=== PATIENT | male | born 1975 | race Caucasian/White ===

== ENCOUNTER 2025-10-01 12:12 | Inpatient (IN) ==
[2025-10-01] MEDS ORDERED: ACETAMINOPHEN 325 MG TAB PO PRN (13:51)
[2025-10-01] MEDS ORDERED: ONDANSETRON INJ 2 MG/ML 2 ML VIAL IV PRN (13:51)
[2025-10-01] MEDS ORDERED: MAGNESIUM HYDROXIDE SUSP 30 ML UDC PO PRN (13:51)
[2025-10-01] MEDS ORDERED: POLYETHYLENE (MIRALAX) 17 GM PACK PO PRN (13:51)
--- NOTE | 2025-10-01 14:02 | History & Physical Report ---
Date of Service October 01, 2025 Assessment & Plan (1) Abscess of sigmoid colon due to diverticulitis: Plan: Patient is a 50-year-old male with PMHx significant for diverticulitis who is a direct admission from [facility] after CTAP revealed acute diverticulitis with intramural abscess formation vs contained perforation seen along the ventral wall of the sigmoid colon in the LLQ measuring 2.5 x 3.3 x 3 cm. [facility] does not have access to on-call general surgery, thus the reason for transfer to this facility for formal general surgery evaluation. Full CTAP impression from [facility] under the 'Diagnostic Findings' section. Patient is hemodynamically stable, afebrile. Not meeting sepsis criteria on admission. Appreciable left lower quadrant and suprapubic tenderness on exam. No evidence of free air seen on CTAP. No indication for emergent surgical exploration at this time per d/w with general surgery. Continue conservative management with IV ABX, IVF hydration, bowel rest and as needed analgesia. S/p IV vancomycin and Zosyn at [facility]. Will continue with IV Zosyn for now, check blood cultures. Follow repeat labs, WBC count previously 15k at [facility] but otherwise his additional labs were grossly unrevealing. Check baseline EKG. UA performed at [facility] without evidence of infection. DVT Prophylaxis: SCDs/TEDs only for now Code Status: FULL CODE PCP: Theo Serrano MD Disposition: Admitted to med/surg Patient seen in collaboration with Dr. Hardin. Please see addendum. I spent a total of 65 minutes coordinating, documenting, and providing care for this patient excluding time spent in the performance of separately billed services or time spent by another provider/QHP. This included personally reviewing all current laboratories and imaging studies, medical reconciliation, outpatient chart review and discussion with specialists. This chart was completed in part utilizing Speech Voice Recognition Software. Grammatical errors, random word insertions, pronoun errors, and incomplete sentences are an occasional consequence of this system due to software limitations, ambient noise, and hardware issues. Any formal questions or concerns about the content, text, or information contained within the body of this dictation should be directly addressed to the provider for clarification. Admission and Anticipated Discharge Date Admission Date: October 01, 2025 History of Present Illness Chief Complaint: Direct admission from [facility]: sigmoid diverticulitis with abscess Primary Care Provider: Theo Serrano MD Patient is a 50-year-old male with PMHx significant for diverticulitis who is a direct admission from [facility] after CTAP revealed evidence of sigmoid diverticulitis with findings concerning for abscess formation. [facility] does not have access to on-call general surgeons, thus the reason for transfer to this facility for formal general surgery evaluation. Patient admits to left lower quadrant abdominal pain x 1 week. Describes the pain as mostly crampy in nature. Does admit to some sharp, stabbing pains as well. Denies any nausea or vomiting. Has previously had 2 bouts of diverticulitis over the past 10 years, neither situation required hospitalization. Both cases resolved with conservative management consisting of bowel rest and antibiotic therapy. Tried some magnesium citrate to help alleviate his pain as he thought it possibly was related to constipation. Admits to having copious bowel movements yesterday with no significant improvement in his pain. Denies any blood in his stool. No reported urinary complaints. Denies any fevers. Allergies Allergy/AdvReac Type Severity Reaction Status Date / Time amoxicillin [From Augmentin] Allergy Irritable Unverified 11/07/24 02:02 clavulanic acid Allergy Irritable Unverified 11/07/24 02:02 [From Augmentin] Home Medications Medication Instructions Recorded Confirmed Type No Known Home Medications 08/11/19 10/01/25 History Past Med/Surg History Problem List (Updated 10/01/25 @ 14:35 by Zak Cummings PA-C) Abscess of sigmoid colon due to diverticulitis Atypical chest pain Palpitations Medical History No significant past medical history Surgical History No significant past surgical history Social History Smoking Status: Light tobacco smoker Tobacco Type: Cigarettes Do You Dip or Chew Tobacco: No; Hx Alcohol Use: No Hx Substance Use: No Preferred Language: Georgian [employer] Required: Yes and No Beliefs That Will Affect Care: None marital status: Current Living Situation: Spouse current occupational status: employed Other Information That Helps Us Care for You: No Feels Safe at Home: Yes Safety Concerns: Feels Safe At This Time Assistive Devices: Glasses Review of Systems Review of Systems: At least ten systems reviewed and negative, except as noted in the HPI. Physical Exam Physical Exam: General: WD/WN, NAD, laying down in bed, A&Ox3, conversing appropriately. Pleasant. at bedside. HEENT: Normocephalic, atraumatic. External ear and nose normal, oropharynx normal. Respiratory: Normal respiratory effort, CTAB. Cardiovascular: RRR, normal peripheral pulses, no BLE edema. Abdomen/GI: Active bowel sounds, mod TTP in LLQ and suprapubic region, nondistended, soft. No guarding. Extremities/Musculoskeletal: No cyanosis or clubbing, extremities motor strength intact, moves all extremities. Neurologic: No overt focal deficits, CN's II-XI not formally tested but appear grossly intact bilaterally. Results & Data Results & Data Vital Signs (Past 12 Hours) Vital Signs Temp Pulse Resp BP Pulse Ox O2 Del Method 10/01/25 13:47 36.7 C 58 L 16 151/78 H 99 Room Air Diagnostic Findings CTAP with contrast performed at [facility], 10/01/2025, impression: 1. Prominent inflammatory wall thickening and fat stranding of the descending and sigmoid colon compatible with colitis. Extensive diverticulosis is noted and there is pericolonic inflammatory fat stranding likely the basis of acute diverticulitis. There is a multiloculated peripherally enhancing low-density collection with punctate focus of gas along the ventral wall of the sigmoid colon in the left lower quadrant measuring 2.5 x 3.3 x 3 cm, most likely on the basis of an intramural abscess. A contained perforation can have a similar appearance. No gross free air otherwise identified. 2. No evidence of small bowel obstruction or acute appendicitis. Small amount of free fluid in the lower abdomen and upper pelvis. 3. Wall thickening of the superior wall of the urinary bladder, likely reactive to the adjacent inflammatory changes in the sigmoid colon. Correlate with urinalysis to exclude cystitis. Mild prostamegaly with mild mass effect on the base of bladder. 4. Mild diffuse hepatic steatosis. Subcentimeter right lobe hepatic lesion measuring 5 mm is too small to characterize. Code Status & VTE Plan VTE Prophylaxis Plan VTE Prophylaxis will be ordered: Yes Supervising Physician Co-Signing Physician Notes Patient is a 50-year-old male with history of diverticulitis, tobacco use and no other significant past medical history presents with history of worsening lower quadrant abdominal pain for 1 week duration. Patient initially was evaluated at [facility] ED where he obtained CT abdomen showed evidence of diverticulitis with contained perforation Vs intra-abdominal abscess of sigmoid colon. Patient was transferred to [facility] for further evaluation. Patient admits to have 2 other episodes of diverticulitis in the past which resolved with conservative management. He states left lower quadrant abdominal pain is intermittent, sharp to stabbing and crampy in nature with radiation to groin, denies any aggravating, relieving factors. He admits to using mag citrate to help with bowel movement which did not really change his symptoms. Please review HPI for complete details of presentation. Blood work currently pending. His white blood cell count is elevated at 15k while at [facility]. On exam patient is well-built and nourished, no apparent distress, normocephalic atraumatic, EOMI, normal breath sounds, clear to auscultation, S1-S2, no murmur, no pedal edema, abdomen soft, left lower quadrant tender, no guarding or rigidity, normal bowel sounds, alert, awake, oriented, grossly no focal deficits. Patient is admitted for management of sigmoid diverticular abscess. Agree with IV Zosyn, fluids, n.p.o. Pain control as needed. Surgery consulted. I personally interviewed and examined the patient at bedside. I have reviewed the advanced practitioner's documentation on the date of service referred in note and agree with plan. Patient's care is coordinated with Isabelle Fuentes PA-C. Please refer to the documentation above for details of patient's presentation and for discussion of other issues. I spent a total [id number] coordinating, documenting, and providing care for this patient excluding time spent in the performance of separately billed services or time spent by another provider/QHP.
--- NOTE | 2025-10-01 14:24 | Surgery Consultation ---
Date of Consultation October 01, 2025 Assessment & Plan (1) Abscess of sigmoid colon due to diverticulitis: Plan Patient currently is not in extremis, is hemodynamically stable, afebrile, with some left lower quadrant and suprapubic tenderness, but no overt peritoneal signs, and there is no evidence of free air on CAT scan, so no indication for emergent surgical exploration at this time. Our hope is that we can avoid surgery and treat conservatively with IV antibiotics while we trend his white blood cell count, temps, and serial abdominal exams. If white blood cell count is climbing, has persistent fevers, or has worsening pain he may need to proceed to the OR on this admission. For now, would recommend keeping n.p.o. for bowel rest and will consider advancing his diet tomorrow if his white blood cell count is trending down and his abdominal pain is improving. Continue IV antibiotics, as needed IV pain medication, okay from surgical standpoint for pharmacologic DVT prophylaxis with heparin or Lovenox. Appreciate the hospitalist team management and general surgery will continue to follow for now. Supervising Physician Co-Signing Physician Notes This case has been discussed with the surgical PA History of Present Illness Reason for Consultation: diverticulitis with contained perforation Attending Physician: Aida Yeager, History of Present Illness Patient is a 50-year-old otherwise healthy white male, who has a past medical history of recurrent diverticulitis, who presents to [facility] as a direct admission from [facility] emergency department due to complaints of abdominal pain x [address] evidence of diverticulitis with contained perforation. Patient states that he initially developed abdominal pain approximately 1 week ago, localized to the left lower quadrant, intermittent, described as sharp and stabbing, but also crampy, with radiation down into his groin but no obvious aggravating or relieving factors. Patient states that he believes he has had diverticulitis on 2 other occasions over the last 5 years or so, 1 treated with IV antibiotics, and the other was self treated with leftover antibiotics from his approximately 1 year ago. Patient states on both occasions the antibiotics seemed helpful and his abdominal pain resolved. At the onset of this episode of his pain 1 week ago he initially felt that it may be related to reflux and constipation. He tried taking Aleve for the pain which did seem helpful, but then took Pepto-Bismol for the reflux and mag citrate for his constipation. He states that the reflux seemed improved with Pepto and he had multiple loose nonbloody bowel movements after the mag citrate, however his abdominal pain still persisted and increased in severity so he came to the emergency department for evaluation. He denies any chest pain, shortness of breath, dyspnea, nausea, vomiting, fevers or chills. Upon his initial evaluation he was hemodynamically stable and afebrile. His exam was significant for moderate left lower quadrant abdominal tenderness without overt peritoneal signs. His labs were significant for an elevated white blood cell count of 15.3. He had a CAT scan of the abdomen pelvis that showed findings concerning for an intraluminal abscess of the sigmoid colon versus contained perforation, likely related to a perforated diverticulitis. He was then transferred to [facility] for admission to the medical service and general surgery was consulted. Of note, the patient does admit to having a colonoscopy approximately 3 years ago when he was 47, states that it was ordered as part of his workup for diverticulitis in the past, and was told the colonoscopy was unremarkable. Allergies Allergy/AdvReac Type Severity Reaction Status Date / Time amoxicillin [From Augmentin] Allergy Irritable Unverified 11/07/24 02:02 clavulanic acid Allergy Irritable Unverified 11/07/24 02:02 [From Augmentin] Home Medications Medication Instructions Recorded Confirmed Type No Known Home Medications 08/11/19 10/01/25 History Patient History Medical History No significant past medical history Surgical History No significant past surgical history Social History Smoking Status: Light tobacco smoker Tobacco Type: Cigarettes Do You Dip or Chew Tobacco: No; Hx Alcohol Use: No Hx Substance Use: No Preferred Language: French Mail Teller Required: Yes and No Beliefs That Will Affect Care: None marital status: Current Living Situation: Spouse current occupational status: employed Other Information That Helps Us Care for You: No Feels Safe at Home: Yes Safety Concerns: Feels Safe At This Time Assistive Devices: Glasses Review of Systems Review of Systems: All systems reviewed & are unremarkable except as noted in HPI & below Physical Exam Physical Exam: Gen: Awake and alert, resting comfortably in bed in NAD CV: RRR PULM: non-labored breathing Abd: Abd soft, non-tender, non-distended, exquisitely tender to palpation to the left lower quadrant and suprapubic areas, but no guarding and no rigidity, no peritoneal signs ext: no edema to bilateral lower ext, SCDs in place, non-tender, feet warm and well perfused Results & Data Vital Signs (Past 12 Hours) Vital Signs Temp Pulse Resp BP Pulse Ox O2 Del Method 10/01/25 13:47 36.7 C 58 L 16 151/78 H 99 Room Air Diagnostic Findings CT abdomen pelvis at [facility]: Based on report: 1. Prominent inflammatory wall thickening and fat stranding of the descending and sigmoid colon compatible with colitis. Extensive diverticulosis is noted and there is pericolonic inflammatory fat stranding likely the basis of acute diverticulitis. There is a multiloculated peripherally enhancing low-density collection with punctate focus of gas along the ventral wall of the sigmoid colon in the left lower quadrant, most likely on the basis of an intramural abscess. A contained perforation can have similar appearance. No gross free air otherwise identified. Surgical consultation is recommended. 2. No evidence of small bowel obstruction or acute appendicitis. Small amount of free fluid in the lower abdomen and upper pelvis. 3. Wall thickening of the superior wall of the urinary bladder, and likely reactive to the adjacent inflammatory changes of the sigmoid colon. Correlate with urinalysis to exclude cystitis. Mild prostamegaly with mild mass effect at the base of the bladder. PG Care Time/CCT Total # of Minutes Spent Total Time Spent with Patient: Total time spent is greater than 50% in coordination of care (as documented) at patient's floor/unit and/or counseling patient: [place] [address] IN/OBS CONSULT LVL 5,80M Patient Type New Medical Decision Making Moderate Complexity Diagnoses Abscess of sigmoid colon due to diverticulitis K57.20
[2025-10-01] MEDS ORDERED: MoRPHine SULFATE 2 MG/ML CARP IV PRN (14:30)
[2025-10-01] MEDS: SODIUM CHLORIDE 0.9% 1,000 ML IV SCH (14:35)
[2025-10-01] MEDS: PIPERACILLIN/TAZOBACTAM 4.5 GM/100 ML BAG IV ONE (14:49)
[2025-10-01 15:38] LABS: Hematocrit (blood only) 42.4 % (42.0-52.0); Hemoglobin 14.3 g/dL (14.0-18.0); Immature Granulocytes # (auto) 0.09 K/uL (0.01-0.20); Immature Granulocytes % (auto) 0.5 %; Mean Corpuscular Hemoglobin 30.4 pg (25.0-34.0); Mean Corpuscular Volume 90.2 fL (80.0-100.0); Platelet Count 280 K/uL (130-400); RDW Standard Deviation 40.6 fL (36.4-46.3); Red Blood Count 4.70 M/uL (4.70-6.10); White Blood Count 17.05 K/ul (4.8-10.8)
[2025-10-01 15:56] LABS: Alanine Aminotransferase 19.0 U/L (7-52); Albumin Globulin Ratio 1.2 (0.9-2); Albumin Level 3.6 gm/dl (3.4-5.0); Alkaline Phosphatase 67.0 U/L (34-104); Anion Gap 6.0 (3-11); Bilirubin,Total 1.3 mg/dl (0.2-1.0); Blood Urea Nitrogen 11.0 mg/dl (6-23); Calcium 8.2 mg/dl (8.6-10.3); Carbon Dioxide 25.0 mmol/L (21-32); Chloride 106.0 mmol/L (98-107); Creatinine Clr Calc Pharmacy 94.4 ml/min; Globulin 2.9 gm/dl (2.5-4.0); Glucose 92.0 mg/dl (70-99(Fasting)); Magnesium 2.1 mg/dl (1.7-2.4); Potassium 4.3 mmol/L (3.5-5.1); Sodium 137.0 mmol/L (136-145); Total Protein 6.5 gm/dl (6.0-8.3)
[2025-10-01] MEDS: KETOROLAC TROMETHAMINE 15 MG/ML VIAL IV PRN (21:00)
[2025-10-01] MEDS: PIPERACILLIN/TAZOBACTAM 4.5 GM/100 ML BAG IV SCH (21:18)
[2025-10-01] MEDS: LORazepam Inj 0.25 MG in SYRINGE 0.125 ML IV PRN (21:45)
[2025-10-02] MEDS: MELATONIN 3 MG TAB PO PRN (00:42)
[2025-10-02 06:27] LABS: Hematocrit (blood only) 36.8 % (42.0-52.0); Hemoglobin 12.9 g/dL (14.0-18.0); Immature Granulocytes # (auto) 0.06 K/uL (0.01-0.20); Immature Granulocytes % (auto) 0.4 %; Mean Corpuscular Hemoglobin 31.3 pg (25.0-34.0); Mean Corpuscular Volume 89.3 fL (80.0-100.0); Platelet Count 262 K/uL (130-400); RDW Standard Deviation 39.1 fL (36.4-46.3); Red Blood Count 4.12 M/uL (4.70-6.10); White Blood Count 13.84 K/ul (4.8-10.8)
[2025-10-02 06:52] LABS: Alanine Aminotransferase 14.0 U/L (7-52); Albumin Globulin Ratio 1.5 (0.9-2); Albumin Level 3.4 gm/dl (3.4-5.0); Alkaline Phosphatase 55.0 U/L (34-104); Anion Gap 8.0 (3-11); Bilirubin,Total 1.4 mg/dl (0.2-1.0); Blood Urea Nitrogen 11.0 mg/dl (6-23); Calcium 8.2 mg/dl (8.6-10.3); Carbon Dioxide 23.0 mmol/L (21-32); Chloride 106.0 mmol/L (98-107); Creatinine Clr Calc Pharmacy 96.3 ml/min; Globulin 2.3 gm/dl (2.5-4.0); Glucose 90.0 mg/dl (70-99(Fasting)); Magnesium 1.9 mg/dl (1.7-2.4); Potassium 3.9 mmol/L (3.5-5.1); Sodium 137.0 mmol/L (136-145); Total Protein 5.7 gm/dl (6.0-8.3)
--- NOTE | 2025-10-02 08:20 | Electrocardiogram Report ---
Test Reason : Blood Pressure : */* mmHG Vent. Rate : 59 BPM Atrial Rate : 59 BPM P-R Int : 164 ms QRS Dur : 74 ms QT Int : 402 ms P-R-T Axes : 28 34 7 degrees QTcB Int : 397 ms Sinus bradycardia Abnormal ECG When compared with ECG of 11-Aug-2019 14:05, T wave inversion now evident in Inferior leads Confirmed by Chi Melgar ([id number]) on 10/02/2025 8:20:32 AM Referred By: REFERRED SELF Confirmed By: Chi Melgar
--- NOTE | 2025-10-02 11:50 | Hospitalist Progress Note ---
Date of Service October 02, 2025 Assessment & Plan (1) Abscess of sigmoid colon due to diverticulitis: (2) Anxiety about health: (3) Insomnia: Plan Patient with sigmoid colon abscess due to ruptured diverticulitis. Has responded appropriately to antibiotics Continue antibiotics Clear liquid diet and advance as tolerated in coordination with surgery As needed Ativan for anxiety Trazodone for sleep at bedside updated Admission and Anticipated Discharge Date Admission Date: October 01, 2025 Subjective Patient states his abdominal plain is almost completely resolved. Anxious about his hospitalization. States he has not sleep in 3 days and extremely fatigued and irritable Physical Exam Physical Exam: Constitutional: Alert, nontoxic HEENT: Mucous membranes moist. Lungs: Clear to auscultation, decreased, no wheezes rales or rhonchi CV: S1-S2, regular Abdomen: Soft, nondistended, mild tenderness left lower quadrant/suprapubic area with minimal guarding, no rigidity, no rebound Extremities: No significant edema Neuro: No focal deficits Psych: Cooperative, normal mood Results & Data Results & Data Vital Signs (Past 12 Hours) Vital Signs Temp Pulse Resp BP Pulse Ox O2 Del Method 10/02/25 07:06 36.9 C 60 16 108/55 L 97 Room Air Diagnostic Findings Reviewed imaging, laboratory and diagnostic studies. Pertinent findings as below. WBCs 13.8, improved Hemoglobin 12.9 Electrolytes stable Creatinine 0.98
[2025-10-02] MEDS: LORazepam 1 MG TAB PO PRN (12:44)
--- NOTE | 2025-10-02 12:48 | Surgery Progress Note ---
Date of Service October 02, 2025 Assessment & Plan (1) Abscess of sigmoid colon due to diverticulitis: Plan Patient appears to be recovering well from conservative treatment of his diverticulitis with perforation and contained abscess. White blood cell count is trending down, afebrile, and his abdominal pain is improving. We would like to advance him to clear liquid diet and continue to trend his white blood cell count, temps, and serial abdominal exams. Patient again expressed his frustration at the lack of updates from the medical team, so we have explained in great detail the typical presentation of diverticulosis, diverticulitis, and its management both medically and surgically. Patient states that he is very upset and was initially requesting to be discharged home, however this would be AGAINST MEDICAL ADVICE. At the end of our conversation, he is agreeable to staying and getting IV antibiotics with the likely transition to oral antibiotics upon discharge. We may consider a repeat CAT scan of the abdomen pelvis prior to discharge patient to reassess this contained perforation. He will also need an outpatient colonoscopy in approximately 6 weeks after this bout of diverticulitis resolves. Remainder of his care per the primary medicine team, general surgery will continue to follow for now. Admission and Anticipated Discharge Date Admission Date: October 01, 2025 Supervising Physician Co-Signing Physician Notes I have seen and examined this patient this am. He has been frustrated as he apparently was expecting to come in for a dose of IV abx and be sent home as he states he has done in the past. I have had a lengthy discussion with him regarding diverticulitis causes, symptoms, severity types that can cause of variety of presentations and CT imaging findings. I also explained the forms of treatment and potential treatment courses which vary depending on the severity. I have explained to him that he has had what we call a complicated episode of diverticulitis due to abscess formation. I explained what an abscess is and why they form. I have also explained the methods of treating an abscess, the dangers of leaving an abscess untreated or only partially treated and the implications of diverticulitis that does not get fully treated to resolution. He is also very frustrated that he has not had anything to eat and minimal to drink dating back to days ago at home as he has been dealing with this at home for roughly 6 days prior to seeking medical treatment. In an effort to appease the patient further, I did allow him clear liquids today. In addition, he states his abdominal pain is resolved. The patient also felt frustrated with the lack of sleep he has suffered th roughout this illness. He states he requested a sleep aid and was unable to get one. We will have this addressed in his orders for tonight so that the patient is able to get some sleep. After my long discussion with the patient and his family member at bedside, the patient felt some satisfaction, feeling more confident in his stay and the current treatment plan. His diet may be advanced to full liquids for dinner if he tolerates the clears Ambulate and he may have chemical DVT ppx if he accepts Surgery will continue to follow Subjective Patient currently states that he feels well, states that his abdominal pain has resolved. He has remained n.p.o., denies any nausea or vomiting, denies any flatus or bowel movement yet. White blood cell count is trending down, was 17 on admission, down to 13.8 today, afebrile, on Zosyn day 2. Patient expresses frustration, states that he has not been updated about his clinical course and expected hospital course. We had a detailed discussion with his present regarding the typical presentation of diverticulitis and its management, all questions were answered. Physical Exam Physical Exam: Gen: Awake and alert, resting comfortably in bed in NAD CV: RRR PULM: non-labored breathing Abd: Abd soft, non-tender, non-distended, mildly tender to palpation to the left lower quadrant and suprapubic areas, but no guarding and no rigidity, no peritoneal signs ext: no edema to bilateral lower ext, SCDs in place, non-tender, feet warm and well perfused Results & Data Vital Signs (Past 12 Hours) Vital Signs Temp Pulse Resp BP Pulse Ox O2 Del Method 10/02/25 07:06 36.9 C 60 16 108/55 L 97 Room Air PG Care Time/CCT Total # of Minutes Spent Total Time Spent with Patient: Total time spent is greater than 50% in coordination of care (as documented) at patient's floor/unit and/or counseling patient: 50 minutes C[place] [address] SUB INP/OBS CARE 3/50MIN Patient Type Established Diagnoses Abscess of sigmoid colon due to diverticulitis K57.20
[2025-10-03 06:03] LABS: Hematocrit (blood only) 36.2 % (42.0-52.0); Hemoglobin 12.3 g/dL (14.0-18.0); Immature Granulocytes # (auto) 0.05 K/uL (0.01-0.20); Immature Granulocytes % (auto) 0.4 %; Mean Corpuscular Hemoglobin 30.1 pg (25.0-34.0); Mean Corpuscular Volume 88.7 fL (80.0-100.0); Platelet Count 258 K/uL (130-400); RDW Standard Deviation 38.1 fL (36.4-46.3); Red Blood Count 4.08 M/uL (4.70-6.10); White Blood Count 12.32 K/ul (4.8-10.8)
[2025-10-03 06:23] LABS: Anion Gap 7.0 (3-11); Blood Urea Nitrogen 9.0 mg/dl (6-23); Calcium 8.5 mg/dl (8.6-10.3); Carbon Dioxide 25.0 mmol/L (21-32); Chloride 106.0 mmol/L (98-107); Creatinine Clr Calc Pharmacy 84.3 ml/min; Glucose 98.0 mg/dl (70-99(Fasting)); Potassium 4.1 mmol/L (3.5-5.1); Sodium 138.0 mmol/L (136-145)
--- NOTE | 2025-10-03 10:52 | Surgery Progress Note ---
<Statement entered by Aida Yeager DO - 10/03/25 18:16> I have seen and examined this patient this am with the surgical PA. I agree with this plan Date of Service October 03, 2025 Assessment & Plan (1) Abscess of sigmoid colon due to diverticulitis: Plan Patient is overall recovering well from his perforated diverticulitis with intramural abscess, abdominal pain is improved, WBC still elevated but trending down, afebrile. We feel that his diet could be advanced to low fiber today and continue with IV antibiotics for now. We had a detailed discussion with the patient regarding our preference to complete 72 hours of IV antibiotics and repeat his CT scan of the abdomen/pelvis tomorrow, and he is agreeable. If there is improvement of the diverticular disease on the CT tomorrow, will plan on transitioning to oral antibiotics and possibly discharge home. remainder of his care per the primary medicine team, general surgery will continue to follow for now. Admission and Anticipated Discharge Date Admission Date: October 01, 2025 Subjective patient continues to complain of mild left lower quadrant abdominal cramping, worse with movement and when he has to strain to void, but no worsening abdominal pain when eating a full liquid diet this morning. Overall much improved compared to on presentation. He has remained afebrile, WBC still elevated but trending down. Passing flatus but denies bowel movement. denies any nausea or vomiting Physical Exam Physical Exam: Gen: Awake and alert, resting comfortably in bed in NAD CV: RRR PULM: non-labored breathing Abd: Abd soft, non-tender, non-distended, mildly tender to palpation to the left lower quadrant and suprapubic areas, but no guarding and no rigidity, no peritoneal signs ext: no edema to bilateral lower ext, SCDs in place, non-tender, feet warm and well perfused Results & Data Vital Signs (Past 12 Hours) Vital Signs Temp Pulse Resp BP Pulse Ox O2 Del Method 10/03/25 07:19 36.4 C L 56 L 16 128/67 95 Room Air 10/02/25 23:08 36.7 C 62 18 121/67 95 Room Air PG Care Time/CCT Total # of Minutes Spent Total Time Spent with Patient: Total time spent is greater than 50% in coordination of care (as documented) at patient's floor/unit and/or counseling patient: C[place] [address] SUB INP/OBS CARE 11/28MIN Patient Type Established History Problem Focused Exam Problem Focused Medical Decision Making Straight Forward Diagnoses Abscess of sigmoid colon due to diverticulitis K57.20
--- NOTE | 2025-10-03 13:16 | Hospitalist Progress Note ---
Date of Service October 03, 2025 Assessment & Plan (1) Abscess of sigmoid colon due to diverticulitis: (2) Anxiety about health: (3) Insomnia: Plan Continue IV antibiotics Reviewed surgical recommendations to repeat CT tomorrow Diet advanced at bedside updated Admission and Anticipated Discharge Date Admission Date: October 01, 2025 Subjective Patient is feeling significantly improved. Tolerated his full liquid breakfast. Still little bit of cramping and lower abdominal pain with getting up and activity. Tolerated low fiber lunch. He states that he really appreciated the medications for sleep and had a great night sleep Physical Exam Physical Exam: Constitutional: Alert, nontoxic HEENT: Mucous membranes moist. Lungs: Clear to auscultation, decreased, no wheezes rales or rhonchi CV: S1-S2, regular Abdomen: Soft, nontender, nondistended, mild tenderness, mild guarding suprapubic area, low left lower quadrant Extremities: No significant edema Neuro: No focal deficits Psych: Cooperative, normal mood Results & Data Results & Data Vital Signs (Past 12 Hours) Vital Signs Temp Pulse Resp BP Pulse Ox O2 Del Method 10/03/25 07:19 36.4 C L 56 L 16 128/67 95 Room Air Diagnostic Findings Reviewed imaging, laboratory and diagnostic studies. Pertinent findings as below. WBCs 12.3, slightly improved Hemoglobin 12.3 Electrolytes stable Creatinine 1.12
[2025-10-03] MEDS ORDERED: Nursing to Pharmacy Communication SCH (23:00)
[2025-10-03 23:04] VITALS: TEMP 97.9; O2SAT 97
[2025-10-04 06:28] LABS: Hematocrit (blood only) 36.5 % (42.0-52.0); Hemoglobin 12.9 g/dL (14.0-18.0); Immature Granulocytes # (auto) 0.05 K/uL (0.01-0.20); Immature Granulocytes % (auto) 0.5 %; Mean Corpuscular Hemoglobin 31.2 pg (25.0-34.0); Mean Corpuscular Volume 88.2 fL (80.0-100.0); Platelet Count 298 K/uL (130-400); RDW Standard Deviation 37.2 fL (36.4-46.3); Red Blood Count 4.14 M/uL (4.70-6.10); White Blood Count 10.45 K/ul (4.8-10.8)
[2025-10-04 07:27] VITALS: BP 126/72; PULSE 54; RESP 16
[2025-10-04] MEDS: OPTIRAY 320 100ml IV ONE (10:26)
--- NOTE | 2025-10-04 13:03 | Surgery Progress Note ---
<Statement entered by Aida Yeager DO - 10/04/25 16:38> I have seen this patient this am. I agree with this plan. Date of Service October 04, 2025 Assessment & Plan (1) Abscess of sigmoid colon due to diverticulitis: Plan: Pt w/ diverticulitis and intramural abscess WBC 10.4. Afebrile with stable vitals Pain and symptoms much improved tolerating diet, + bowel function Repeat CT scan pending to ensure abscess stable to decreased If + results on CT scan we are okay with discharge to home and complete a course of oral abx Admission and Anticipated Discharge Date Admission Date: October 01, 2025 Subjective Patient feels well. Tolerating low fiber diet. + BM. Pain much improved Physical Exam Physical Exam: awake/alert Respiratory: normal respiratory effort Gastrointestinal (Abdomen): Percussion/Palpation: + abdomen tender (improved) and abdomen soft Results & Data Vital Signs (Past 12 Hours) Vital Signs Temp Pulse Resp BP Pulse Ox O2 Del Method 10/04/25 07:27 97.9 F 54 L 16 126/72 97 Room Air PG Care Time/CCT Total # of Minutes Spent Total Time Spent with Patient: Total time spent is greater than 50% in coordination of care (as documented) at patient's floor/unit and/or counseling patient: Coding Level of Care Code 13729 SUB INP/OBS CARE 11/28MIN Diagnoses Abscess of sigmoid colon due to diverticulitis K57.20
--- NOTE | 2025-10-04 14:19 | CT Scan Report ---
ABDOMEN AND PELVIS CT WITH IV CONTRAST CT DOSE: 997.07 mGy.cm HISTORY: Acute lower abdominal pain abd pain TECHNIQUE: Multiaxial CT images of the abdomen and pelvis were performed following the IV administrat ion of 93 cc of Optiray, A dose lowering technique was utilized adhering to the principles of ALARA. COMPARISON STUDY: CT abdomen and pelvis from outside hospital 10/01/2025 FINDINGS: Motion degraded exam. Mild linear bibasilar subsegmental atelectasis. Unremarkable spleen, pancreas, gallbladder and adrenal glands. 6 mm hypodense focus of the left hepatic lobe on image 77 s eries 3, likely a small cyst. There is mild fatty infiltration of the left hepatic lobe adjacent to t he falciform ligament. Patent portal vein. Mild nonspecific bilateral perinephric stranding. No hydronephrosis. Urinary bladder wall thickening and perivesicular stranding with partial distention. Mild atherosclerosis of the aorta without aneury sm. No lymphadenopathy. No bowel obstruction. Colonic diverticulosis. There is moderate wall thickeni ng of the proximal to mid sigmoid with mucosal hyperemia, not significant change from the prior study . There is asymmetric pericolonic stranding with inflammatory changes along the anterior wall of the sigmoid on image 249 series 3. Possible developing phlegmon within this area without discrete abscess . No definite pneumatosis or pneumoperitoneum. Fluid-filled loops of large and small bowel may repres ent a reactive ileus. Normal appendix. Unremarkable soft tissues. No acute fracture. IMPRESSION: 1. Acute sigmoid diverticulitis redemonstrated. 2. Inflammatory changes and phlegmon are most pronounced along the anterior wall of the mid sigmoid. The previously measured fluid collection is not definitively seen at this time. 3. No bowel obstruction, definite abscess, pneumatosis or pneumoperitoneum. 4. Normal appendix. ACT 112: Negative or not required by law. The above report was generated using voice recognition software. It may contain grammatical, syntax o r spelling errors. Electronically signed by: Matt Parson M.D. 10/04/2025 2:18 PM
--- NOTE | 2025-10-04 14:54 | Discharge Summary ---
Discharge Summary Date of Service October 04, 2025 Principal Dx & Hospital Course #1 = Principal Diagnosis (1) Abscess of sigmoid colon due to diverticulitis: (2) Anxiety about health: (3) Insomnia: Plan Patient 50-year-old gentleman transferred from an outside facility with CT findings of acute sigmoid diverticulitis and possible early abscess formation. Patient was admitted to the hospital. Is placed on broad-spectrum IV antibiotics. Surgical consultation was obtained. Surgery reviewed the patient's images and clinical presentation. They recommended no surgical intervention at this time. Recommended ongoing bowel rest and IV antibiotics. Through the course of his hospitalization the patient steadily improved. When he had presented he had already not slept for approximately 3 days. He was given some Ativan and trazodone to deal with his anxiety and insomnia. This was quite effective and he was able to get some good restorative sleep here in the hospital. WBCs normalized. His pain improved. His diet was advanced. On the day of discharge repeat CT scan was performed. There was no significant worsening on the imaging. He can be transition to oral antibiotics and discharged home to follow-up with his outpatient providers. Recommended GI evaluation for colonoscopy and approximately 48 weeks Notes For Next Care Provider Will need GI eval for colonoscopy Medication Changes From Visit Augmentin for diverticulitis Lorazepam for anxiety and insomnia Admission HPI Per Admitting Provider Patient is a 50-year-old male with PMHx significant for diverticulitis who is a direct admission from [facility] after CTAP revealed evidence of sigmoid diverticulitis with findings concerning for abscess formation. [facility] does not have access to on-call general surgeons, thus the reason for transfer to this facility for formal general surgery evaluation. Patient admits to left lower quadrant abdominal pain x 1 week. Describes the pain as mostly crampy in nature. Does admit to some sharp, stabbing pains as wel l. Denies any nausea or vomiting. Has previously had 2 bouts of diverticulitis over the past 10 years, neither situation required hospitalization. Both cases resolved with conservative management consisting of bowel rest and antibiotic therapy. Tried some magnesium citrate to help alleviate his pain as he thought it possibly was related to constipation. Admits to having copious bowel movements yesterday with no significant improvement in his pain. Denies any blood in his stool. No reported urinary complaints. Denies any fevers. Admission Exam Per Admitting Provider See H&P Discharge Exam Constitutional: Alert HEENT: Mucous membranes moist. Lungs: Clear to auscultation, decreased, no wheezes rales or rhonchi CV: S1-S2, regular Abdomen: Soft, minimal tenderness to palp patient deep in the suprapubic area. Minimal guarding. Significantly improved exam from admission Extremities: No significant edema Neuro: No focal deficits Psych: Cooperative, normal mood Updated Medication List Medication Instructions Recorded Confirmed Type No Known Home Medications 08/11/19 10/01/25 History amoxicillin 875 mg-potassium 1 tab PO BID 12 days #24 tabs 10/03/25 Rx clavulanate 125 mg tablet lorazepam 1 mg tablet (Ativan) 1 mg PO TID PRN anxiety/insomnia 10/03/25 Rx #10 tabs Hospital Stay Data Consultations 10/01/25 13:51 Consult General Surgery Routine Diagnostic Imagining Performed 10/04/25 10:28 CT Abd and Pelvis [CT abd pelvis IV con only] Routine Reviewed imaging, laboratory and diagnostic studies. Pertinent findings as below. WBCs 10.4 Hemoglobin 12.9 Platelets of [address] of the abdomen showed ongoing sigmoid diverticulitis with inflammatory changes along the anterior wall of the mid sigmoid the previously measured fluid collection was not definitely seen at this time. No significant worsening when compared to previous. No definite abscess. Pending Results Patient Have Any Pending Studies at Discharge: No Discharge Instructions Given to Patient (Per Discharging Provider) Complete course of antibiotics Discuss with your PCP GI referral. Recommend colonoscopy in approximately 4 to 8 weeks Low fiber diet for 4-6 weeks Total Time Total Time Spent Total Time Spent (In Minutes): 35
== END 2025-10-04 15:46 | disposition home or self-care (01) | DRG 392 ==
LOC: 3E 13:43